=== PATIENT | female | born 1965 | race Caucasian/White ===

== ENCOUNTER 2020-05-26 19:43 | Inpatient (IN) ==
[2020-05-27] MEDS ORDERED: Naloxone 0.4 MG/ML INJ IVP PRN (03:20)
[2020-05-27] MEDS ORDERED: Dextrose Gel 15 GM/37.5 ML TUBE PO PRN ×2 (04:13)
[2020-05-27] MEDS ORDERED: D5% in Water 1,000 ML IVC PRN (04:13)
[2020-05-27] MEDS ORDERED: *HR* Dextrose 50 % in Water (Vial) 50 ML VIAL IVP PRN (04:13)
[2020-05-27] MEDS ORDERED: Acetaminophen 325 MG TABLET PO PRN (04:27)
[2020-05-27] MEDS: Azithromycin 500 MG in 0.9 % Sodium Chloride 250 ML IVPB SCH (05:47)
[2020-05-27] MEDS: *HR* Heparin 5,000 UNIT/ML VIAL SQ SCH ×2 (05:48→17:22)
[2020-05-27 06:37] LABS: Hemoglobin 10.4 g/dL (11.5-15.4); Immature Granulocytes % 0.8 % (0-4); Lymphocytes # 0.6 K/mcL (0.6-4.6); Lymphocytes % 9.5 %; Mean Corpuscular HGB Conc 32.5 g/dL (31.6-35.5); Mean Corpuscular Hemoglobin 28.2 pg (28.0-33.3); Mean Corpuscular Volume 86.7 fL (83.0-100.0); Mean Platelet Volume 10.4 fL (9.4-12.4); Monocytes # 0.4 K/mcL (0.0-1.3); Monocytes % 6.3 %; Neutrophils # 5.1 K/mcL (1.6-8.9); Platelet Count 185 K/mcL (140-400); Red Blood Count 3.69 M/mcL (3.82-4.97); Red Cell Distribution Width 16.4 % (11.5-14.5); Segmented Neutrophils % 83.4 %; White Blood Count 6.1 K/mcL (4.3-11.1)
[2020-05-27 06:54] LABS: BUN/Creatinine Ratio 12 (6-26); Blood Urea Nitrogen 10 mg/dL (6-20); Calcium 9.3 mg/dL (8.6-10.3); Carbon Dioxide 31 mEq/L (23-29); Chloride 97 mEq/L (98-107); Glucose 195 mg/dL (70-105); Magnesium 1.6 mg/dL (1.6-2.6); Osmolality,Calculated 286 (280-300); Phosphorous 2.8 mg/dL (2.7-4.5); Potassium 3.4 mEq/L (3.5-5.1); Sodium 136 mEq/L (136-145); eGFR For African Americans > 60 (> 60); eGFR For Non-African Americans > 60 (> 60)
[2020-05-27] MEDS: Ipratropium/Albuterol Neb 3 ML IH SCH ×4 (07:29→22:32)
[2020-05-27] MEDS: Insulin LISPRO 300 UNITS/3 ML VIAL SQ SCH ×3 (08:36→17:23)
[2020-05-27] MEDS: MethylPREDNISolone 40 MG/ML VIAL IVP SCH ×3 (08:36→23:40)
[2020-05-27] MEDS: cefTRIAXone 1,000 MG in Water for inj. (sterile) 10 ML IVP SCH (08:36)
[2020-05-27 09:27] LABS: Estimated Average Glucose 137 mg/dl
[2020-05-27] MEDS: Budesonide/Formoterol 160/4.5 1 PUFF INH IH SCH ×2 (09:32→22:32)
[2020-05-27] MEDS: Gabapentin 400 MG CAPSULE PO SCH ×3 (10:30→19:47)
[2020-05-27] MEDS: lisinopriL 5 MG TABLET PO SCH (10:30)
[2020-05-27] MEDS: Ranolazine 500 MG TAB.ER.12H PO SCH ×2 (10:30→19:47)
[2020-05-27] MEDS: Isosorbide MONOnitrate (24 HR) 60 MG TAB.ER.24H PO SCH (10:30)
[2020-05-27] MEDS ORDERED: clonazePAM 1 MG TABLET PO ONE (11:17)
[2020-05-27] MEDS: clonazePAM 1 MG TABLET PO SCH ×2 (15:49→19:47)
[2020-05-27] MEDS: Ibuprofen 800 MG TABLET PO PRN (17:22)
[2020-05-27] MEDS: traZODone 50 MG TABLET PO PRN (19:47)
[2020-05-27] MEDS: atenoloL 25 MG TABLET PO SCH (19:47)
[2020-05-27] MEDS ORDERED: Insulin LISPRO 300 UNITS/3 ML VIAL SQ SCH (21:00)
[2020-05-28] MEDS: Ipratropium/Albuterol Neb 3 ML IH SCH ×4 (04:06→21:31)
[2020-05-28] MEDS: *HR* Heparin 5,000 UNIT/ML VIAL SQ SCH ×2 (05:38→18:19)
[2020-05-28] MEDS: Azithromycin 500 MG in 0.9 % Sodium Chloride 250 ML IVPB SCH (05:38)
[2020-05-28] MEDS: Furosemide 40 MG TABLET PO SCH (07:32)
[2020-05-28] MEDS: Ranolazine 500 MG TAB.ER.12H PO SCH ×2 (07:32→20:35)
[2020-05-28] MEDS: Isosorbide MONOnitrate (24 HR) 60 MG TAB.ER.24H PO SCH (07:32)
[2020-05-28] MEDS: lisinopriL 5 MG TABLET PO SCH (07:32)
[2020-05-28] MEDS: atenoloL 25 MG TABLET PO SCH ×2 (07:32→20:35)
[2020-05-28] MEDS: MethylPREDNISolone 40 MG/ML VIAL IVP SCH ×3 (07:32→23:53)
[2020-05-28] MEDS: Insulin LISPRO 300 UNITS/3 ML VIAL SQ SCH ×4 (07:33→20:47)
[2020-05-28] MEDS: cefTRIAXone 1,000 MG in Water for inj. (sterile) 10 ML IVP SCH (07:33)
[2020-05-28] MEDS: Gabapentin 400 MG CAPSULE PO SCH ×3 (08:43→20:35)
[2020-05-28] MEDS: clonazePAM 1 MG TABLET PO SCH ×3 (08:43→20:35)
[2020-05-28] MEDS: Ibuprofen 800 MG TABLET PO PRN (08:43)
[2020-05-28] MEDS: Fluticasone Propionate Nasal 50 MCG/SPRAY BOTTLE NS SCH (08:52)
[2020-05-28] MEDS: Budesonide/Formoterol 160/4.5 1 PUFF INH IH SCH ×2 (11:14→21:31)
[2020-05-28 11:32] LABS: Basophils % 0.1 %; Hematocrit 30.3 % (35.3-44.9); Hemoglobin 9.7 g/dL (11.5-15.4); Immature Granulocytes % 0.7 % (0-4); Lymphocytes # 0.9 K/mcL (0.6-4.6); Lymphocytes % 11.1 %; Mean Corpuscular Hemoglobin 27.9 pg (28.0-33.3); Mean Corpuscular Volume 87.1 fL (83.0-100.0); Mean Platelet Volume 10.6 fL (9.4-12.4); Monocytes # 0.8 K/mcL (0.0-1.3); Monocytes % 9.1 %; Neutrophils # 6.7 K/mcL (1.6-8.9); Platelet Count 227 K/mcL (140-400); Red Blood Count 3.48 M/mcL (3.82-4.97); Red Cell Distribution Width 16.9 % (11.5-14.5); White Blood Count 8.5 K/mcL (4.3-11.1)
[2020-05-28 12:02] LABS: BUN/Creatinine Ratio 15 (6-26); Blood Urea Nitrogen 13 mg/dL (6-20); Calcium 9.3 mg/dL (8.6-10.3); Carbon Dioxide 30 mEq/L (23-29); Chloride 98 mEq/L (98-107); Glucose 179 mg/dL (70-105); Osmolality,Calculated 285 (280-300); Potassium 4.5 mEq/L (3.5-5.1); Sodium 135 mEq/L (136-145); eGFR For African Americans > 60 (> 60); eGFR For Non-African Americans > 60 (> 60)
[2020-05-28] MEDS ORDERED: *HR* HYDROcodone/Acet 10/325 mg TABLET PO ONE (13:25)
[2020-05-28] MEDS ORDERED: *HR* OxyCODONE Immed Rel 5 MG TABLET PO ONE (20:57)
[2020-05-29] MEDS: Ipratropium/Albuterol Neb 3 ML IH SCH ×4 (03:46→22:11)
[2020-05-29] MEDS ORDERED: Insulin DETEMIR 100 UNIT/ML X5UNITS SQ ONE (03:46)
[2020-05-29] MEDS: Azithromycin 500 MG in 0.9 % Sodium Chloride 250 ML IVPB SCH (04:52)
[2020-05-29] MEDS: *HR* Heparin 5,000 UNIT/ML VIAL SQ SCH ×2 (04:52→16:40)
[2020-05-29 05:38] LABS: Basophils % 0.3 %; Hematocrit 29.9 % (35.3-44.9); Hemoglobin 9.6 g/dL (11.5-15.4); Immature Granulocytes % 1.8 % (0-4); Lymphocytes # 0.9 K/mcL (0.6-4.6); Lymphocytes % 12.2 %; Mean Corpuscular HGB Conc 32.1 g/dL (31.6-35.5); Mean Corpuscular Hemoglobin 27.7 pg (28.0-33.3); Mean Corpuscular Volume 86.4 fL (83.0-100.0); Mean Platelet Volume 10.3 fL (9.4-12.4); Monocytes # 0.4 K/mcL (0.0-1.3); Neutrophils # 5.8 K/mcL (1.6-8.9); Platelet Count 211 K/mcL (140-400); Red Blood Count 3.46 M/mcL (3.82-4.97); Red Cell Distribution Width 16.6 % (11.5-14.5); Segmented Neutrophils % 80.7 %; White Blood Count 7.1 K/mcL (4.3-11.1)
[2020-05-29 05:55] LABS: Magnesium 1.7 mg/dL (1.6-2.6); Phosphorous 3.1 mg/dL (2.7-4.5)
[2020-05-29 05:56] LABS: BUN/Creatinine Ratio 20 (6-26); Blood Urea Nitrogen 19 mg/dL (6-20); Calcium 9.3 mg/dL (8.6-10.3); Carbon Dioxide 31 mEq/L (23-29); Chloride 98 mEq/L (98-107); Glucose 205 mg/dL (70-105); Osmolality,Calculated 288 (280-300); Potassium 4.2 mEq/L (3.5-5.1); Sodium 135 mEq/L (136-145); eGFR For African Americans > 60 (> 60); eGFR For Non-African Americans > 60 (> 60)
[2020-05-29] MEDS: cefTRIAXone 1,000 MG in Water for inj. (sterile) 10 ML IVP SCH (08:11)
[2020-05-29] MEDS: Isosorbide MONOnitrate (24 HR) 60 MG TAB.ER.24H PO SCH (08:11)
[2020-05-29] MEDS: Furosemide 40 MG TABLET PO SCH (08:11)
[2020-05-29] MEDS: Ranolazine 500 MG TAB.ER.12H PO SCH ×2 (08:11→21:09)
[2020-05-29] MEDS: Gabapentin 400 MG CAPSULE PO SCH ×3 (08:11→21:09)
[2020-05-29] MEDS: lisinopriL 5 MG TABLET PO SCH (08:11)
[2020-05-29] MEDS: clonazePAM 1 MG TABLET PO SCH ×3 (08:11→21:09)
[2020-05-29] MEDS: atenoloL 25 MG TABLET PO SCH ×2 (08:11→21:09)
[2020-05-29] MEDS: MethylPREDNISolone 40 MG/ML VIAL IVP SCH ×3 (08:12→23:18)
[2020-05-29] MEDS: Insulin LISPRO 300 UNITS/3 ML VIAL SQ SCH ×4 (08:13→21:10)
[2020-05-29] MEDS: Fluticasone Propionate Nasal 50 MCG/SPRAY BOTTLE NS SCH (08:13)
[2020-05-29] MEDS: Budesonide/Formoterol 160/4.5 1 PUFF INH IH SCH ×2 (09:38→22:11)
[2020-05-29] MEDS: *HR* HYDROcodone/Acet 5/325 mg TABLET PO PRN ×3 (10:08→23:20)
[2020-05-30] MEDS: Ipratropium/Albuterol Neb 3 ML IH SCH ×4 (03:16→23:25)
[2020-05-30] MEDS: *HR* Heparin 5,000 UNIT/ML VIAL SQ SCH ×2 (05:01→17:28)
[2020-05-30] MEDS: *HR* HYDROcodone/Acet 5/325 mg TABLET PO PRN ×3 (05:44→23:02)
[2020-05-30 05:59] LABS: Basophils % 0.2 %; Hematocrit 31.8 % (35.3-44.9); Hemoglobin 10.4 g/dL (11.5-15.4); Lymphocytes % 14.8 %; Mean Corpuscular HGB Conc 32.7 g/dL (31.6-35.5); Mean Corpuscular Hemoglobin 27.7 pg (28.0-33.3); Mean Corpuscular Volume 84.8 fL (83.0-100.0); Mean Platelet Volume 10.2 fL (9.4-12.4); Monocytes # 0.4 K/mcL (0.0-1.3); Monocytes % 6.2 %; Neutrophils # 5.1 K/mcL (1.6-8.9); Platelet Count 207 K/mcL (140-400); Red Blood Count 3.75 M/mcL (3.82-4.97); Red Cell Distribution Width 16.1 % (11.5-14.5); Segmented Neutrophils % 76.8 %; White Blood Count 6.6 K/mcL (4.3-11.1)
[2020-05-30 06:11] LABS: BUN/Creatinine Ratio 24 (6-26); Blood Urea Nitrogen 23 mg/dL (6-20); Calcium 9.3 mg/dL (8.6-10.3); Carbon Dioxide 28 mEq/L (23-29); Chloride 95 mEq/L (98-107); Glucose 236 mg/dL (70-105); Osmolality,Calculated 285 (280-300); Sodium 132 mEq/L (136-145); eGFR For African Americans > 60 (> 60); eGFR For Non-African Americans 59 (> 60)
[2020-05-30] MEDS: cefTRIAXone 1,000 MG in Water for inj. (sterile) 10 ML IVP SCH (07:26)
[2020-05-30] MEDS: Gabapentin 400 MG CAPSULE PO SCH ×3 (07:27→21:00)
[2020-05-30] MEDS: Ranolazine 500 MG TAB.ER.12H PO SCH ×2 (07:27→21:00)
[2020-05-30] MEDS: Azithromycin 250 MG TABLET PO SCH (07:27)
[2020-05-30] MEDS: MethylPREDNISolone 40 MG/ML VIAL IVP SCH ×3 (07:27→23:06)
[2020-05-30] MEDS: atenoloL 25 MG TABLET PO SCH ×2 (07:28→21:00)
[2020-05-30] MEDS: Isosorbide MONOnitrate (24 HR) 60 MG TAB.ER.24H PO SCH (07:28)
[2020-05-30] MEDS: Furosemide 40 MG TABLET PO SCH (07:28)
[2020-05-30] MEDS: clonazePAM 1 MG TABLET PO SCH ×3 (07:28→21:00)
[2020-05-30] MEDS: lisinopriL 5 MG TABLET PO SCH (07:28)
[2020-05-30] MEDS: Insulin LISPRO 300 UNITS/3 ML VIAL SQ SCH ×4 (07:38→21:01)
[2020-05-30] MEDS: Fluticasone Propionate Nasal 50 MCG/SPRAY BOTTLE NS SCH (07:57)
[2020-05-30] MEDS: Budesonide/Formoterol 160/4.5 1 PUFF INH IH SCH ×2 (09:55→23:25)
[2020-05-30] MEDS: amLODIPine 5 MG TABLET PO SCH (12:08)
[2020-05-31 01:55] LABS: BUN/Creatinine Ratio 34 (6-26); Blood Urea Nitrogen 31 mg/dL (6-20); Calcium 9.1 mg/dL (8.6-10.3); Carbon Dioxide 29 mEq/L (23-29); Chloride 94 mEq/L (98-107); Glucose 254 mg/dL (70-105); Osmolality,Calculated 287 (280-300); Sodium 131 mEq/L (136-145); eGFR For African Americans > 60 (> 60); eGFR For Non-African Americans > 60 (> 60)
[2020-05-31] MEDS: Ipratropium/Albuterol Neb 3 ML IH SCH ×4 (04:46→21:51)
[2020-05-31] MEDS: *HR* Heparin 5,000 UNIT/ML VIAL SQ SCH ×2 (05:27→16:56)
[2020-05-31] MEDS: *HR* HYDROcodone/Acet 5/325 mg TABLET PO PRN ×3 (05:29→19:16)
[2020-05-31] MEDS: Insulin LISPRO 300 UNITS/3 ML VIAL SQ SCH ×4 (08:00→19:16)
[2020-05-31] MEDS: cefTRIAXone 1,000 MG in Water for inj. (sterile) 10 ML IVP SCH (08:00)
[2020-05-31] MEDS: Gabapentin 400 MG CAPSULE PO SCH ×3 (08:01→19:16)
[2020-05-31] MEDS: MethylPREDNISolone 40 MG/ML VIAL IVP SCH ×2 (08:01→16:56)
[2020-05-31] MEDS: Ranolazine 500 MG TAB.ER.12H PO SCH ×2 (08:01→19:16)
[2020-05-31] MEDS: Fluticasone Propionate Nasal 50 MCG/SPRAY BOTTLE NS SCH (08:01)
[2020-05-31] MEDS: amLODIPine 5 MG TABLET PO SCH (08:01)
[2020-05-31] MEDS: lisinopriL 10 MG TABLET PO SCH (08:01)
[2020-05-31] MEDS: Isosorbide MONOnitrate (24 HR) 60 MG TAB.ER.24H PO SCH (08:02)
[2020-05-31] MEDS: Azithromycin 250 MG TABLET PO SCH (08:02)
[2020-05-31] MEDS: atenoloL 25 MG TABLET PO SCH ×2 (08:02→19:16)
[2020-05-31] MEDS: clonazePAM 1 MG TABLET PO SCH ×3 (08:02→19:16)
[2020-05-31] MEDS: Furosemide 40 MG TABLET PO SCH (08:02)
[2020-05-31] MEDS: Budesonide/Formoterol 160/4.5 1 PUFF INH IH SCH ×2 (10:24→21:51)
[2020-05-31] MEDS: traZODone 50 MG TABLET PO PRN (23:34)
[2020-06-01] MEDS: Ipratropium/Albuterol Neb 3 ML IH SCH ×3 (03:39→16:15)
[2020-06-01] MEDS: MethylPREDNISolone 40 MG/ML VIAL IVP SCH (05:41)
[2020-06-01] MEDS: *HR* Heparin 5,000 UNIT/ML VIAL SQ SCH (05:41)
[2020-06-01] MEDS: *HR* HYDROcodone/Acet 5/325 mg TABLET PO PRN ×3 (05:47→18:38)
[2020-06-01] MEDS: Fluticasone Propionate Nasal 50 MCG/SPRAY BOTTLE NS SCH (08:14)
[2020-06-01] MEDS: cefTRIAXone 1,000 MG in Water for inj. (sterile) 10 ML IVP SCH (08:14)
[2020-06-01] MEDS: Ranolazine 500 MG TAB.ER.12H PO SCH (08:15)
[2020-06-01] MEDS: atenoloL 25 MG TABLET PO SCH (08:16)
[2020-06-01] MEDS: Furosemide 40 MG TABLET PO SCH (08:16)
[2020-06-01] MEDS: amLODIPine 5 MG TABLET PO SCH (08:16)
[2020-06-01] MEDS: lisinopriL 10 MG TABLET PO SCH (08:16)
[2020-06-01] MEDS: Gabapentin 400 MG CAPSULE PO SCH ×2 (08:16→14:44)
[2020-06-01] MEDS: Isosorbide MONOnitrate (24 HR) 60 MG TAB.ER.24H PO SCH (08:17)
[2020-06-01] MEDS: clonazePAM 1 MG TABLET PO SCH ×2 (08:19→14:45)
[2020-06-01] MEDS: Insulin LISPRO 300 UNITS/3 ML VIAL SQ SCH ×3 (08:19→16:46)
[2020-06-01] MEDS: Budesonide/Formoterol 160/4.5 1 PUFF INH IH SCH (10:58)
[2020-06-01 16:57] VITALS: BP 158/90
== END 2020-06-01 19:32 | disposition home or self-care (01) | DRG 140 ==
LOC: CDU → SUATTDRO 05-27 01:40 → 2ANU 05-27 04:09 → SUATTDRO 05-29 14:41
PROVIDERS: ADMIT Internal Medicine; ATTEND Internal Medicine

== ENCOUNTER 2020-12-09 15:47 | Observation (INO) ==
[2020-12-09] MEDS ORDERED: Isovue-370 500 ML BOTTLE IVP ONE (16:56)
[2020-12-09] MEDS ORDERED: Ondansetron 4 MG/2 ML VIAL IVP ONE (16:57)
[2020-12-09] MEDS ORDERED: 0.9 % Sodium Chloride 1,000 ML IVC ONE (16:57)
[2020-12-09 17:15] LABS: Basophils # 0.1 K/mcL (0.0-0.2); Basophils % 0.5 %; Eosinophils # 0.2 K/mcL (0.0-0.6); Eosinophils % 1.5 %; Hematocrit 31.3 % (35.3-44.9); Hemoglobin 10.5 g/dL (11.5-15.4); Immature Granulocytes % 0.9 % (0-4); Lymphocytes % 33.8 %; Mean Corpuscular HGB Conc 33.5 g/dL (31.6-35.5); Mean Corpuscular Hemoglobin 29.3 pg (28.0-33.3); Mean Corpuscular Volume 87.4 fL (83.0-100.0); Mean Platelet Volume 10.2 fL (9.4-12.4); Monocytes # 1.3 K/mcL (0.0-1.3); Monocytes % 10.8 %; Neutrophils # 6.2 K/mcL (1.6-8.9); Platelet Count 277 K/mcL (140-400); Red Blood Count 3.58 M/mcL (3.82-4.97); Red Cell Distribution Width 16.2 % (11.5-14.5); Segmented Neutrophils % 52.5 %; White Blood Count 11.8 K/mcL (4.3-11.1)
[2020-12-09 17:23] LABS: INR 1.2; Prothrombin Time 13.3 Seconds (9.4-12.1)
[2020-12-09 17:26] LABS: Activated Partial Thrombo Time 32.8 Seconds (26.0-36.0)
[2020-12-09 17:38] LABS: Alanine Aminotransferase 35 Units/L (7-52); Albumin 3.4 g/dL (3.5-5.7); Albumin/Globulin Ratio 1.5 (1.1-2.2); Alkaline Phosphatase 50 Units/L (34-104); Aspartate Amino Transferase 42 Units/L (13-39); BUN/Creatinine Ratio 8 (6-26); Bilirubin,Total 0.5 mg/dL (0.3-1.0); Blood Urea Nitrogen 5 mg/dL (6-20); Calcium 8.4 mg/dL (8.6-10.3); Carbon Dioxide 27 mEq/L (23-29); Chloride 91 mEq/L (98-107); Globulin 2.3 g/dL (2.4-3.5); Glucose 118 mg/dL (70-105); Osmolality,Calculated 262 (280-300); Potassium 3.6 mEq/L (3.5-5.1); Sodium 127 mEq/L (136-145); Total Protein 5.7 g/dL (6.4-8.9); eGFR For African Americans > 60 (> 60); eGFR For Non-African Americans > 60 (> 60)
[2020-12-09 17:39] LABS: Troponin I < 0.03 ng/mL (< 0.04)
[2020-12-09 18:28] LABS: Adenovirus Not Detected (Not Detect); Bordetella Pertussis Not Detected (Not Detect); Chlamydophila pneumoniae Not Detected (Not Detect); Coronavirus 229E Not Detected (Not Detect); Coronavirus HKU1 Not Detected (Not Detect); Coronavirus NL63 Not Detected (Not Detect); Coronavirus OC43 Not Detected (Not Detect); Human Metapneumovirus Not Detected (Not Detect); Human Rhinovirus/Enterovirus Not Detected (Not Detect); Influenza A Subtype 2009 H1 Not Detected (Not Detect); Influenza B Not Detected (Not Detect); Mycoplasma pneumoniae Not Detected (Not Detect); Parainfluenza Virus 1 Not Detected (Not Detect); Parainfluenza Virus 2 Not Detected (Not Detect); Parainfluenza Virus 3 Not Detected (Not Detect); Parainfluenza Virus 4 Not Detected (Not Detect); Respiratory Syncytial Virus Not Detected (Not Detect); SARS-CoV-2 Not Detected (Not Detect)
[2020-12-09 19:53] LABS: Bilirubin,Urine Negative (Negative); Blood,Urine Negative (Negative); Clarity,Urine Clear (Clear); Color,Urine Colorless (Yellow); Glucose,Urine (UA) Normal (Normal); Ketones,Urine Negative (Negative); Leukocyte Esterase,Urine Negative (Negative); Nitrite,Urine Negative (Negative); PH,Urine 6.5 pH Units (5.0-8.0); Protein,Urine Negative (Neg-Trace); Specific Gravity,Urine 1.012 (1.010-1.025); Urobilinogen,Urine Normal (Normal)
[2020-12-09] MEDS ORDERED: Calcium Gluconate 1gm/50mL 1 GM/50 ML BAG IVPB ONE (22:07)
[2020-12-09] MEDS ORDERED: Perflutren Lipid Microsphere 1.3 ML in 0.9 % Sodium Chloride 8.7 ML IVP PRN (22:15)
[2020-12-09] MEDS ORDERED: Naloxone 0.4 MG/ML INJ IVP PRN (22:21)
[2020-12-09] MEDS ORDERED: Acetaminophen 325 MG TABLET PO PRN (22:21)
[2020-12-09] MEDS ORDERED: D5% in Water 1,000 ML IVC PRN (22:23)
[2020-12-09] MEDS ORDERED: Dextrose Gel 15 GM/37.5 ML TUBE PO PRN ×2 (22:23)
[2020-12-09] MEDS ORDERED: *HR* Dextrose 50 % in Water (Vial) 50 ML VIAL IVP PRN (22:23)
[2020-12-09] MEDS ORDERED: 0.9 % Sodium Chloride 1,000 ML IVC SCH (22:30)
[2020-12-10] MEDS ORDERED: Insulin LISPRO 300 UNITS/3 ML VIAL SUBQ SCH
[2020-12-10] MEDS: Aspirin Enteric Coated 81 MG Tablet PO SCH ×2 (01:30→08:38)
[2020-12-10] MEDS: Insulin LISPRO 300 UNITS/3 ML VIAL SUBQ SCH ×5 (01:30→20:02)
[2020-12-10] MEDS: Famotidine 20 MG TABLET PO SCH ×3 (01:30→20:02)
[2020-12-10 01:42] LABS: Hematocrit 30.4 % (35.3-44.9); Hemoglobin 10.2 g/dL (11.5-15.4); Mean Corpuscular HGB Conc 33.6 g/dL (31.6-35.5); Mean Corpuscular Hemoglobin 29.1 pg (28.0-33.3); Mean Corpuscular Volume 86.6 fL (83.0-100.0); Mean Platelet Volume 10.1 fL (9.4-12.4); Platelet Count 236 K/mcL (140-400); Red Blood Count 3.51 M/mcL (3.82-4.97); Red Cell Distribution Width 16.5 % (11.5-14.5)
[2020-12-10 02:03] LABS: % Iron Saturation 22 % (15-50); BUN/Creatinine Ratio 7 (6-26); Blood Urea Nitrogen 4 mg/dL (6-20); Calcium 8.3 mg/dL (8.6-10.3); Carbon Dioxide 29 mEq/L (23-29); Chloride 98 mEq/L (98-107); Chol/HDL Ratio 2.2 (0-4.9); Cholesterol 100 mg/dL (< 200); Glucose 95 mg/dL (70-105); HDL Cholesterol 45 mg/dL (40-59); Iron 42 mcg/dL (50-170); LDL Cholesterol,Calculated 38 mg/dL (< 100); Magnesium 1.2 mg/dL (1.6-2.6); Osmolality,Calculated 273 (280-300); Potassium 3.6 mEq/L (3.5-5.1); Sodium 133 mEq/L (136-145); Transferrin 134 mg/dL (203-362); Triglycerides 87 mg/dL (< 150); eGFR For African Americans > 60 (> 60); eGFR For Non-African Americans > 60 (> 60)
[2020-12-10 02:22] LABS: Ferritin 143 ng/mL (10-120)
[2020-12-10 03:58] LABS: Estimated Average Glucose 100 mg/dl; Hemoglobin A1C 5.1 %
[2020-12-10] MEDS: Ondansetron 4 MG/2 ML VIAL IVP PRN (11:25)
[2020-12-10] MEDS: atenoloL 25 MG TABLET PO SCH (20:02)
[2020-12-10] MEDS: Budesonide/Formoterol 80/4.5 1 PUFF INH IH SCH (20:04)
[2020-12-10] MEDS: Ranolazine 500 MG TAB.ER.12H PO SCH (20:05)
[2020-12-11 03:15] LABS: Hematocrit 26.6 % (35.3-44.9); Hemoglobin 9.1 g/dL (11.5-15.4); Mean Corpuscular HGB Conc 34.2 g/dL (31.6-35.5); Mean Corpuscular Hemoglobin 28.7 pg (28.0-33.3); Mean Corpuscular Volume 83.9 fL (83.0-100.0); Platelet Count 224 K/mcL (140-400); Red Blood Count 3.17 M/mcL (3.82-4.97); Red Cell Distribution Width 16.4 % (11.5-14.5); White Blood Count 6.9 K/mcL (4.3-11.1)
[2020-12-11 03:33] LABS: BUN/Creatinine Ratio 8 (6-26); Blood Urea Nitrogen 5 mg/dL (6-20); Calcium 8.1 mg/dL (8.6-10.3); Carbon Dioxide 29 mEq/L (23-29); Chloride 104 mEq/L (98-107); Glucose 81 mg/dL (70-105); Osmolality,Calculated 282 (280-300); Potassium 3.8 mEq/L (3.5-5.1); Sodium 138 mEq/L (136-145); eGFR For African Americans > 60 (> 60); eGFR For Non-African Americans > 60 (> 60)
[2020-12-11] MEDS: Ondansetron 4 MG/2 ML VIAL IVP PRN (07:54)
[2020-12-11] MEDS: Budesonide/Formoterol 80/4.5 1 PUFF INH IH SCH ×2 (08:07→19:43)
[2020-12-11] MEDS: Ranolazine 500 MG TAB.ER.12H PO SCH ×2 (10:55→20:23)
[2020-12-11] MEDS: Insulin LISPRO 300 UNITS/3 ML VIAL SUBQ SCH ×4 (10:55→20:23)
[2020-12-11] MEDS: Isosorbide MONOnitrate (24 HR) 60 MG TAB.ER.24H PO SCH (10:56)
[2020-12-11] MEDS: lisinopriL 5 MG TABLET PO SCH (10:56)
[2020-12-11] MEDS: Aspirin Enteric Coated 81 MG Tablet PO SCH (10:56)
[2020-12-11] MEDS: Fluticasone Propionate Nasal 50 MCG/SPRAY BOTTLE NS SCH (10:57)
[2020-12-11] MEDS: Famotidine 20 MG TABLET PO SCH ×2 (10:57→20:23)
[2020-12-11] MEDS: atenoloL 25 MG TABLET PO SCH ×2 (10:58→20:23)
[2020-12-12 05:52] LABS: Basophils % 0.5 %; Eosinophils # 0.1 K/mcL (0.0-0.6); Eosinophils % 1.4 %; Hematocrit 27.7 % (35.3-44.9); Hemoglobin 9.2 g/dL (11.5-15.4); Immature Granulocytes % 0.3 % (0-4); Lymphocytes # 2.6 K/mcL (0.6-4.6); Lymphocytes % 29.6 %; Mean Corpuscular HGB Conc 33.2 g/dL (31.6-35.5); Mean Corpuscular Hemoglobin 28.8 pg (28.0-33.3); Mean Corpuscular Volume 86.8 fL (83.0-100.0); Mean Platelet Volume 10.1 fL (9.4-12.4); Monocytes # 0.8 K/mcL (0.0-1.3); Monocytes % 8.7 %; Neutrophils # 5.2 K/mcL (1.6-8.9); Platelet Count 245 K/mcL (140-400); Red Blood Count 3.19 M/mcL (3.82-4.97); Red Cell Distribution Width 16.7 % (11.5-14.5); Segmented Neutrophils % 59.5 %; White Blood Count 8.8 K/mcL (4.3-11.1)
[2020-12-12] MEDS: Budesonide/Formoterol 80/4.5 1 PUFF INH IH SCH (07:30)
[2020-12-12] MEDS: Ondansetron 4 MG/2 ML VIAL IVP PRN (07:42)
[2020-12-12] MEDS: Aspirin Enteric Coated 81 MG Tablet PO SCH (07:52)
[2020-12-12] MEDS: Ranolazine 500 MG TAB.ER.12H PO SCH (07:52)
[2020-12-12] MEDS: Isosorbide MONOnitrate (24 HR) 60 MG TAB.ER.24H PO SCH (07:52)
[2020-12-12] MEDS: Famotidine 20 MG TABLET PO SCH (07:53)
[2020-12-12] MEDS: atenoloL 25 MG TABLET PO SCH (07:53)
[2020-12-12] MEDS: lisinopriL 5 MG TABLET PO SCH (07:53)
[2020-12-12] MEDS: Insulin LISPRO 300 UNITS/3 ML VIAL SUBQ SCH ×2 (07:55→11:46)
[2020-12-12] MEDS: Fluticasone Propionate Nasal 50 MCG/SPRAY BOTTLE NS SCH (07:56)
[2020-12-12 11:12] LABS: BUN/Creatinine Ratio 9 (6-26); Blood Urea Nitrogen 6 mg/dL (6-20); Calcium 8.5 mg/dL (8.6-10.3); Carbon Dioxide 23 mEq/L (23-29); Chloride 103 mEq/L (98-107); Glucose 79 mg/dL (70-105); Osmolality,Calculated 281 (280-300); Potassium 4.2 mEq/L (3.5-5.1); Sodium 137 mEq/L (136-145); eGFR For African Americans > 60 (> 60); eGFR For Non-African Americans > 60 (> 60)
[2020-12-12 14:31] VITALS: BP 164/79
== END 2020-12-12 16:31 | disposition home health service (06) ==
LOC: 3BNU 15:47 → EMEROOARM 15:47 → SUATTDRO 21:02 → 3BNU 22:07
PROVIDERS: ADMIT Student in an Organized Health Care Education/Training Program; ATTEND Family Medicine